=== PATIENT | male | born 1960 | race Caucasian/White ===

== ENCOUNTER → 2016-08-28 | Outpatient (CLI) | payer OTHER ==
[~2016-08-28] MED LIST: LISI20TA3 PO; MULT1CAP16 PO; SIMV80TA2 PO; WARF10TA PO
[2016-08-28 12:28] LABS: URINE APPEARANCE CLEAR (CLEAR); URINE BILIRUBIN NEG (NEG); URINE COLOR YELLOW; URINE NITRITE NEG (NEG); URINE SPECIFIC GRAVITY 1.019 (1.000-1.030); UROBILINOGEN NEG (NEG)
[2016-08-28 12:35] LABS: BASO % 0.9 %; BASO ABS # 0.05 K/uL (0-0.2); COMPLETE YES; EOS % 3.9 %; HEMATOCRIT 46.8 % (42-52); IG% 0.9 %; LYMPH % 25.6 %; LYMPH ABS # 1.45 K/uL (1.2-3.4); MEAN CELL VOLUME 86.8 fL (80-100); MEAN CORPUSCULAR HEMOGLOBIN 29.7 pg (25-34); MEAN CORPUSCULAR HGB CONC 34.2 g/dl (32-36); MEAN PLATELET VOLUME 10.7 fL (7.4-10.4); MONO % 8.5 %; NEUT % 60.2 %; PLATELET COUNT 197 K/uL (130-400); RED BLOOD COUNT 5.39 M/uL (4.7-6.1); WHITE BLOOD COUNT 5.66 K/uL (4.8-10.8)
[2016-08-28 12:46] LABS: ALT/SGPT 41 U/L (12-78); AST/SGOT 20 U/L (15-37); BLOOD UREA NITROGEN 12 mg/dl (7-18); BUN/CREATININE RATIO 12.1 (10-20); CARBON DIOXIDE 25 mmol/L (21-32); CHLORIDE 107 mmol/L (98-107); CREATININE 0.98 mg/dl (0.60-1.40); GLUCOSE 118 mg/dl (70-99); POTASSIUM 4.3 mmol/L (3.5-5.1); SODIUM 142 mmol/L (136-145)
[2016-08-28 12:51] LABS: ALB/GLOB RATIO 1.3 (0.9-2); ALKALINE PHOSPHATASE 55 U/L (45-117); CHOLESTEROL 133 mg/dl (0-200); CHOLESTEROL/HDL RATIO 2.4; HDL CHOLESTEROL 56 mg/dl; LDL CHOLESTEROL CALCULATED 54 mg/dl; PROSTATE SPECIFIC ANTIGEN 0.673 ng/ml (0.000-4.000); TRIGLYCERIDES 113 mg/dl (0-150); VERY LOW DENSITY LIPOPROT CALC 23 mg/dl
[2016-08-28 12:52] LABS: MANUAL MICROSCOPIC REQUIRED? NO; REVIEW REQ? NO
[2016-08-28 12:53] LABS: ESTIMATED AVERAGE GLUCOSE 120 mg/dl; HA1C FLAG Normal (Normal)
--- NOTE | 2016-08-29 08:33 | CODING QUERY NO DIAGNOSIS ---
: 1960 TREATMENT RENDERED WITHOUT A DIAGNOSIS To promote full compliance with coding requirements relating to patient care, physician participation is requested in all cases of designer/writer uncertainty. Please assist us with providing a diagnosis/symptom for the test(s) below: A diagnosis/symptom was not documented on your Order. A valid diagnosis/symptom is required to bill all insurances. Please remember that we are unable to code a diagnosis of rule out, probable, possible, questionable, or suspected. Tests that require a diagnosis: DOS: 08/28/16 * Comprehensive Metabolic Panel DIAGNOSIS: * Lipid Profile, Fasting DIAGNOSIS: * Prostate Specific Antigen DIAGNOSIS: * CBC with Auto Differential DIAGNOSIS: * Hemoglobin A1C DIAGNOSIS: * UA Clean Catch DIAGNOSIS: Provider Signature: Date: Thank you Cassandra Patel Health Information Management Once completed, please kindly fax back to [phone] For questions please call [phone]
== END | disposition home or self-care (01) ==
LOC: C.LABBFT 09:29
PROVIDERS: ATTEND Internal Medicine
DX: E78.5 Hyperlipidemia, unspecified (principal); Z12.5 Encounter for screening for malignant neoplasm of prostate; I10 Essential (primary) hypertension; R73.09 Other abnormal glucose; D68.51 Activated protein C resistance

== ENCOUNTER → 2017-09-19 | Outpatient (CLI) | payer OTHER ==
[2017-09-19 12:41] LABS: BASO % 0.4 %; BASO ABS # 0.02 K/uL (0-0.2); EOS % 2.4 %; EOS ABS # 0.13 K/uL (0-0.5); HEMATOCRIT 49.4 % (42-52); HEMOGLOBIN 16.7 g/dL (14.0-18.0); IG# 0.01 K/uL (0.00-0.02); LYMPH % 28.5 %; LYMPH ABS # 1.55 K/uL (1.2-3.4); MEAN CELL VOLUME 87.3 fL (80-100); MEAN CORPUSCULAR HEMOGLOBIN 29.5 pg (25-34); MEAN CORPUSCULAR HGB CONC 33.8 g/dl (32-36); MONO % 8.1 %; MONO ABS # 0.44 K/uL (0.11-0.59); NEUT % 60.4 %; NEUT ABS # 3.28 K/uL (1.4-6.5); PLATELET COUNT 191 K/uL (130-400); RED CELL DISTRIBUTION WIDTH CV 13.8 % (11.5-14.5); RED CELL DISTRIBUTION WIDTH SD 44.1 fL (36.4-46.3); WHITE BLOOD COUNT 5.43 K/uL (4.8-10.8)
[2017-09-19 13:05] LABS: HEMOGLOBIN A1C 5.5 % (4.5-5.6)
[2017-09-19 13:14] LABS: ALKALINE PHOSPHATASE 62 U/L (45-117); ALT/SGPT 31 U/L (12-78); AST/SGOT 17 U/L (15-37); BLOOD UREA NITROGEN 19 mg/dl (7-18); CALCIUM 8.7 mg/dl (8.5-10.1); CARBON DIOXIDE 28 mmol/L (21-32); CHOLESTEROL 106 mg/dl (0-200); CREATININE 0.98 mg/dl (0.60-1.40); GLUCOSE 102 mg/dl (70-99); LDL CHOLESTEROL CALCULATED 51 mg/dl; POTASSIUM 4.3 mmol/L (3.5-5.1); SODIUM 141 mmol/L (136-145); TOTAL PROTEIN 7.1 gm/dl (6.4-8.2)
== END | disposition home or self-care (01) ==
LOC: C.LABPVFM 09:41
PROVIDERS: ATTEND Internal Medicine
DX: E78.5 Hyperlipidemia, unspecified (principal); R73.03 Prediabetes; N52.9 Male erectile dysfunction, unspecified

== ENCOUNTER 2020-10-06 23:38 | Inpatient (IN) ==
[2020-10-07] MEDS: SODIUM CHLORIDE 0.9% 1000ML 1,000 ML IV SCH ×2 (00:20→01:52)
[2020-10-07 00:28] LABS: Base Excess VBG -6.3 mEq/L; HCO3 VBG 21 mmol/L; Oxygen Saturation VBG < 60.0 %; PCO2 VBG 47 mmHg (38-50); PO2 VBG 26 mmHg; pH VBG 7.27 (7.36-7.41)
[2020-10-07 00:43] LABS: INR 3.4 (0.9-1.1); Partial Thromboplastin Ratio 1.3; Partial Thromboplastin Time 32.9 Seconds (21.0-31.0); Prothrombin Time 31.1 Seconds (9.0-12.0)
[2020-10-07 00:46] LABS: Eosinophils # (auto) 0.09 K/uL (0-0.5); Eosinophils % (auto) 1.1 %; Hematocrit (blood only) 53.8 % (42-52); Hemoglobin 16.9 g/dL (14.0-18.0); Immature Granulocytes # (auto) 0.01 K/uL (0.00-0.02); Immature Granulocytes % (auto) 0.1 %; Lymphocytes # (auto) 1.16 K/uL (1.2-3.4); Lymphocytes % (auto) 13.6 %; Mean Corpuscular Hemoglobin 27.8 pg (25-34); Mean Corpuscular Hgb Conc 31.4 g/dL (32-36); Mean Corpuscular Volume 88.3 fL (80-100); Monocytes # (auto) 0.67 K/uL (0.11-0.59); Monocytes % (auto) 7.8 %; Neutrophils # (auto) 6.63 K/uL (1.4-6.5); Neutrophils % (auto) 77.4 %; Platelet Count 192 K/uL (130-400); Red Blood Count 6.09 M/uL (4.7-6.1); White Blood Count 8.56 K/uL (4.8-10.8)
[2020-10-07 00:59] LABS: Alanine Aminotransferase 49 U/L (12-78); Albumin Level 3.4 gm/dl (3.4-5.0); Alkaline Phosphatase 98 U/L (45-117); BUN Creatinine Ratio 21.9 (10-20); Bilirubin,Total 0.5 mg/dl (0.2-1); Blood Urea Nitrogen 76 mg/dl (7-18); Calcium 8.8 mg/dl (8.5-10.1); Carbon Dioxide 22 mmol/L (21-32); Chloride 97 mmol/L (98-107); Creatinine Clr Calc Pharmacy 25.6 ml/min; Est GFR (African American) 20.8; Globulin 3.4 gm/dl (2.5-4.0); Glucose 1205 mg/dl (70-99); Lipase 843 U/L (73-393); Sodium 128 mmol/L (136-145); Total Protein 6.8 gm/dl (6.4-8.2); Troponin I < 0.015 ng/ml (0-0.045)
[2020-10-07] MEDS ORDERED: HHS GOAL RANGE 250-350 mg/dl ONE (01:03)
[2020-10-07] MEDS ORDERED: INSULIN REGULAR 250 UNITS in SODIUM CHLORIDE 0.9% 247.5 ML IV SCH (01:15)
--- NOTE | 2020-10-07 01:25 | History & Physical Report ---
Date of Service October 07, 2020 Assessment & Plan (1) Type 2 diabetes mellitus with hyperosmolar hyperglycemic state (HHS): 60 yo M with hx uncontrolled T2DM, obesity, HLD, HTN, Factor V leiden heterozygote w/ hx DVT admitted for weakness secondary to HHS. HHS with elevated B-OH level/DKA - BSG 1205 on admission, A1c two weeks ago 10.3 - B-OH 15, Anion gap 9 on BMP, however with corrected sodium is gap is 27 - ABG showing anion gap metabolic acidosis consistent with DKA (7.34/32/79/16) - ER course: 7 units regular insulin, regular insulin drip initiated, 3L NS - adjusted plan on PCU floor: 10u regular insulin followed by repeat BSG 30 min later. Repeat 10u Regular insulin IV if BSG >450. titrate to goal of BSG ~300. - hydration with 1/2NS + 20 mEq K, 250 ml/hr - Q4 BMP, Phos DM2 - after BSG <400, can do ACHS BSG measurements with SSI coverage to fully close gap and return BSG to normal range - diabetic, heart healthy diet - outpatient regimen recently started was metformin 1000 BID. will likely need to go home on insulin, will calculate based on daily requirements - diabetic education crucial Hyponatremia - secondary to elevated BSG as above ANGELA - Cr 3.47 secondary to dehydration with HHS - improving with fluids - only value in early 2020 was 1.51, may be new baseline Hx DVT/Factor V Leiden Heterozygote - continue warfarin MWF 7.5, else 5mg - INR, PT, PTT check in AM HTN - cont lisinopril HLD - cont statin Elevated Lipase - secondary to hyperglycemia above - 843 -> 672 with hydration - no abdominal pain, low suspicion for acute pancreatitis. likely chronic elevation with uncontrolled T2DM DVT ppx: warfarin FEN/GI: NPO with sips & chips until BSG stabilizes Code Status: Full code Dispo: PCU (2) Elevated beta-hydroxybutyric acid level: (3) Uncontrolled diabetes mellitus: (4) Factor 5 Leiden mutation, heterozygous: (5) History of DVT (deep vein thrombosis): (6) Hypertension: (7) Hyperlipidemia: History of Present Illness 60-year-old male with history of uncontrolled type 2 diabetes, factor V Leiden mutation, history of DVT, obesity who presents to the emergency department for generalized weakness. Patient is a very poor understanding of his diabetes and discusses how he has 5 large glasses of chocolate milk a day as well as soda pop the past few days "because it is good for you ". He denies ever being told that he had diabetes before because he is always been prediabetic. He does recall going to see Dr. Coyle for his PCP visit as well as endocrinology visit sometime later but does not have a strong recollection of topics discussed either appointment. In the patient room he is visibly quivering and shaking and says that this started when he arrived at the emergency department. He also states that his eyesight has been worsening for the past several months to a year. He states he is unable to read things far in the wall but can see things that are closer. He denies constant feeling of blurry vision. Primary Care Provider: Brayan Coyle MD Allergies Allergy/AdvReac Type Severity Reaction Status Date / Time No Known Drug Allergies Allergy Unknown Verified 10/07/20 02:02 Home Medications Medication Instructions Recorded Confirmed Type lisinopril 20 mg tablet 20 mg PO DAILY #90 tab 07/25/20 10/07/20 Rx simvastatin 80 mg tablet 80 mg PO QPM #90 tab 07/31/20 10/07/20 Rx blood sugar diagnostic #100 ea 09/28/20 10/07/20 Rx blood-glucose meter #1 ea 09/28/20 10/07/20 Rx lancets #100 ea 09/28/20 10/07/20 Rx metformin 500 mg tablet,extended 2,000 mg PO DAILY 30 Days #120 tab 09/28/20 10/07/20 Rx release 24 hr warfarin 5 - 7.5 mg PO .DAILY UD 10/07/20 10/07/20 History Past Med/Surg History Medical History Diabetes type 2, controlled Erectile dysfunction Factor 5 Leiden mutation, heterozygous History of DVT (deep vein thrombosis) Hyperlipidemia Hypertension Localized primary osteoarthritis of lower leg S/P ORIF (open reduction internal fixation) fracture Status post ORIF for right forearm fracture-remote Family History Mother Cancer Father Unknown family medical history Denies family history of Prostate cancer Colorectal cancer Social History (Updated 09/26/20 @ 13:20 by Luke Coyle MD) Smoking Status: Never smoker Do You Dip or Chew Tobacco: Yes; Hx Alcohol Use: Yes Alcohol type: beer Alcohol Intake Frequency Comment: About 6 beers on Tuesdays. Hx Substance Use: No Preferred Language: Dominican Communication Ability: Effective Beliefs That Will Affect Care: None marital status: Current Living Situation: Family Current Living Situation Comment: Son in law lives "downstairs" current occupational status: disabled Other Information That Helps Us Care for You: No Feels Safe at Home: Yes Safety Concerns: Feels Safe At This Time Assistive Devices: None Review of Systems Constitutional: + fatigue, + weakness and + weight gain Respiratory: no cough, no dyspnea and no pain on inspiration Cardiovascular: + lightheadedness; no chest pain, no radiating jaw, neck or arm pain, no dyspnea on exertion, no palpitations and no calf pain Gastrointestinal: no abdominal pain, no nausea, no vomiting, no constipation and no diarrhea/loose stools Neurologic: + unsteadiness, + tingling, + lack of coordination and + tremor(s) Endocrine: + fatigue Physical Exam Physical Exam: Constitutional: obese, in no apparent distress, visibly tremoring in all 4 limbs at rest Eyes: EOMI, pupils equal and reactive bilaterally, no scleral icterus Cardiac: RRR, no murmurs, gallops or rubs. Normal S1, S2 Pulm: CTA BL, no wheezes, rhonchi, crackles or rubs, moving air well throughout both lungs Abd: soft, nontender, nondistended, normal bowel sounds, no rebound or guarding Extremities: 2+ peripheral pulses, no edema skin: tight and heavily sun exposed. venous stasis change along bottom of shins Neuro: no focal deficits, moving all 4 limbs, A&Ox3 Results & Data Results & Data ([facility]) Vital Signs (Past 12 Hours) Vital Signs Temp Pulse Resp BP Pulse Ox 10/07/20 00:05 92 H 16 94 10/06/20 23:48 36.8 C 104 H 22 111/64 98 Laboratory Results WBC 8.56 K/uL (4.8-10.8) 10/07/20 00:09 RBC 6.09 M/uL (4.7-6.1) 10/07/20 00:09 Hgb 16.9 g/dL (14.0-18.0) 10/07/20 00:09 Hct 53.8 % (42-52) H 10/07/20 00:09 MCV 88.3 fL (80-100) 10/07/20 00:09 MCH 27.8 pg (25-34) 10/07/20 00:09 MCHC 31.4 g/dL (32-36) L 10/07/20 00:09 Plt Count 192 K/uL (130-400) 10/07/20 00:09 Immature Gran % (Auto) 0.1 % 10/07/20 00:09 Neut % (Auto) 77.4 % 10/07/20 00:09 Lymph % (Auto) 13.6 % 10/07/20 00:09 [place] % (Auto) 7.8 % 10/07/20 00:09 Eos % (Auto) 1.1 % 10/07/20 00:09 Baso % (Auto) 0.0 % 10/07/20 00:09 Neut # (Auto) 6.63 K/uL (1.4-6.5) H 10/07/20 00:09 Lymph # (Auto) 1.16 K/uL (1.2-3.4) L 10/07/20 00:09 [place] # (Auto) 0.67 K/uL (0.11-0.59) H 10/07/20 00:09 Eos # (Auto) 0.09 K/uL (0-0.5) 10/07/20 00:09 Baso # (Auto) 0.00 K/uL (0-0.2) 10/07/20 00:09 Immature Gran # (Auto) 0.01 K/uL (0.00-0.02) 10/07/20 00:09 PT 31.1 Seconds (9.0-12.0) H 10/07/20 00:09 INR 3.4 (0.9-1.1) H 10/07/20 00:09 APTT 32.9 Seconds (21.0-31.0) H 10/07/20 00:09 PTT Ratio 1.3 10/07/20 00:09 ABG pH 7.34 (7.35-7.45) L 10/07/20 02:37 ABG pCO2 32 mmHg (35-46) L 10/07/20 02:37 ABG pO2 79 mmHg (80-95) L 10/07/20 02:37 ABG HCO3 16 mmol/L (19-24) L 10/07/20 02:37 ABG O2 Saturation 95.7 % (90-95) H 10/07/20 02:37 ABG Base Excess -8.0 mEq/L (-9-1.8) 10/07/20 02:37 Josep Test POS (Pos) 10/07/20 02:37 VBG pH 7.27 (7.36-7.41) L 10/07/20 00:09 VBG pCO2 47 mmHg (38-50) 10/07/20 00:09 VBG pO2 26 mmHg 10/07/20 00:09 VBG HCO3 21 mmol/L 10/07/20 00:09 VBG O2 Saturation < 60.0 % 10/07/20 00:09 VBG Base Excess -6.3 mEq/L 10/07/20 00:09 Barometric Pressure 727.1 mm/Hg 10/07/20 02:37 Oxygen Given ROOM AIR 10/07/20 02:37 Sodium 128 mmol/L (136-145) L 10/07/20 00:09 Potassium 6.5 mmol/L (3.5-5.1) H* 10/07/20 01:18 Chloride 97 mmol/L (98-107) L 10/07/20 00:09 Carbon Dioxide 22 mmol/L (21-32) 10/07/20 00:09 Anion Gap 9.0 (3-11) 10/07/20 00:09 BUN 76 mg/dl (7-18) H 10/07/20 00:09 Creatinine 3.47 mg/dl (0.6-1.4) H 10/07/20 00:09 Est Cr Clr Drug Dosing 25.6 ml/min 10/07/20 00:09 Est GFR ( Amer) 20.8 10/07/20 00:09 Est GFR (Non-Af Amer) 18.0 10/07/20 00:09 BUN/Creatinine Ratio 21.9 (10-20) H 10/07/20 00:09 Glucose 858 mg/dl (70-99) H* 10/07/20 03:14 POC Glucose > 600 mg/dl (70-99) H* 10/07/20 04:56 Calcium 8.8 mg/dl (8.5-10.1) 10/07/20 00:09 Phosphorus 6.3 mg/dl (2.5-4.9) H 10/07/20 01:18 Magnesium 3.2 mg/dl (1.8-2.4) H 10/07/20 01:18 Total Bilirubin 0.5 mg/dl (0.2-1) 10/07/20 00:09 AST 24 U/L (15-37) 10/07/20 01:18 ALT 49 U/L (12-78) 10/07/20 00:09 Alkaline Phosphatase 98 U/L (45-117) 10/07/20 00:09 Troponin I < 0.015 ng/ml (0-0.045) 10/07/20 00:09 Total Protein 6.8 gm/dl (6.4-8.2) 10/07/20 00:09 Albumin 3.4 gm/dl (3.4-5.0) 10/07/20 00:09 Globulin 3.4 gm/dl (2.5-4.0) 10/07/20 00:09 Albumin/Globulin Ratio 1.0 (0.9-2) 10/07/20 00:09 Lipase 843 U/L (73-393) H 10/07/20 00:09 Beta-Hydroxybutyric Acd 13.61 mg/dl (0.2-2.81) H 10/07/20 03:14 TSH 2.720 uIu/ml (0.300-4.500) 10/07/20 00:09 Urine Color Yellow 10/07/20 01:57 Urine Appearance Clear (Clear) 10/07/20 01:57 Urine pH 5.0 (4.5-7.5) 10/07/20 01:57 Ur Specific Dixon 1.033 (1.000-1.030) H 10/07/20 01:57 Urine Protein Negative (Negative) 10/07/20 01:57 Urine Glucose (UA) 3+ (Negative) H 10/07/20 01:57 Urine Ketones Negative (Negative) 10/07/20 01:57 Urine Blood 2+ (Negative) H 10/07/20 01:57 Urine Nitrite Negative (Negative) 10/07/20 01:57 Urine Bilirubin Negative (Negative) 10/07/20 01:57 Urine Urobilinogen Negative (Negative) 10/07/20 01:57 Ur Leukocyte Esterase Negative (Negative) 10/07/20 01:57 Urine WBC (Auto) 1-5 /hpf (0-5) 10/07/20 01:57 Urine RBC (Auto) 0-4 /hpf (0-4) 10/07/20 01:57 U Hyaline Cast (Auto) 1-5 /lpf (0-5) 10/07/20 01:57 U Epithel Cells (Auto) 0-5 /lpf (0-5) 10/07/20 01:57 Urine Bacteria (Auto) Negative (Negative) 10/07/20 01:57 COVID-19 Eval Order CovFluRsv at [facility] 10/07/20 00:16 SARS-CoV-2 (PCR) NEGATIVE (Negative) 10/07/20 00:16 Influenza Type A (PCR) Negative (Neg) 10/07/20 00:16 Influenza Type B (PCR) Negative (Neg) 10/07/20 00:16 RSV (RT-PCR) Negative (Neg) 10/07/20 00:16 Supervising Physician Co-Signing Physician Notes Attending addendum: I have physically seen this patient, have supervised the medical residents activities, and agree with the H&P unless as otherwise noted. Assessment and Plan: Diabetes mellitus type 2 uncontrolled/mild DKA- BSG 1205 upon admission, with pH 7.34 Plan to give serial regular insulin IV pushes as noted. Every 4 hour intervals will check BMP, magnesium and phosphorus levels IV fluids: Half-normal saline plus KCl 20 mEq at 150 mils per hour. Follow anion gap, and if necessary add D5 when glucose goes to be less than 250 Patient will need extensive education regarding appropriate diet Pseudohyponatremia/ANGELA on CKD- IV fluids as noted above Creatinine 3.47, with most recent base 1.51 Follow serial BMP and magnesium levels at 4-hour intervals. DVT/factor V Leiden- Continue warfarin at current doses after recheck in a.m. Mild supratherapeutic INR 3.4 Hypertension- Continue lisinopril with hold parameters Hyperlipidemia- Continue simvastatin Remaining orders and notations as noted Resident Activity Tracking Resident Involvement: Resident Care Provided Care Provided: Adult Hospital Medicine
[2020-10-07] MEDS ORDERED: GLUCAGON FOR INJ 1 MG VIAL IM PRN (01:45)
[2020-10-07] MEDS ORDERED: DEXTROSE 50% 50 ML SYRINGE IV PRN (01:45)
[2020-10-07] MEDS ORDERED: CARBOHYDRATES FOR HYPOGLYCEMIA PO PRN (01:45)
[2020-10-07] MEDS ORDERED: GLUCOSE 10 TABS/TUBE PO PRN (01:45)
[2020-10-07] MEDS ORDERED: GLUCOSE 40% GEL 15 GM TUBE PO PRN (01:45)
[2020-10-07] MEDS ORDERED: NovoLIN-R BOLUS FROM BAG IV ONE (01:45)
[2020-10-07 02:04] LABS: Beta-Hydroxybutyrate 15.59 mg/dl (0.2-2.81); Magnesium 3.2 mg/dl (1.8-2.4)
[2020-10-07 02:11] LABS: Potassium 6.5 mmol/L (3.5-5.1)
[2020-10-07 02:27] LABS: Influenza A virus by PCR Negative (Neg); Influenza B virus by PCR Negative (Neg); RSV by PCR Negative (Neg); SARS CoV2 RNA(COVID-19) InHosp NEGATIVE (Negative)
[2020-10-07 02:54] LABS: Phosphorus 6.3 mg/dl (2.5-4.9)
[2020-10-07 03:05] LABS: HCO3 ABG 16 mmol/L (19-24); Oxygen Saturation ABG 95.7 % (90-95); PCO2 ABG 32 mmHg (35-46); PO2 ABG 79 mmHg (80-95); pH ABG 7.34 (7.35-7.45)
[2020-10-07 03:08] LABS: Allen Test POS (Pos)
[2020-10-07 03:25] LABS: Beta-Hydroxybutyrate 15.42 mg/dl (0.2-2.81)
[2020-10-07 03:48] LABS: Appearance Urine Clear (Clear); Bacteria Urine Automated Negative (Negative); Bilirubin Urine Negative (Negative); Blood Urine 2+ (Negative); Color Urine Yellow; Epithelial Cell Urine Auto 0-5 /lpf (0-5); Glucose Urine UA 3+ (Negative); Ketones Urine Negative (Negative); Leukocyte Esterase Urine Negative (Negative); Nitrite Urine Negative (Negative); Protein Urine Negative (Negative); RBC Urine Automated 0-4 /hpf (0-4); Specific Gravity Urine 1.033 (1.000-1.030); Urobilinogen Urine Negative (Negative)
[2020-10-07] MEDS ORDERED: PENDING 1/2NSS+40mEq KCL IVF SCH (04:20)
[2020-10-07] MEDS ORDERED: NITROGLYCERIN SL 0.4 MG/TAB TAB SL PRN (04:20)
[2020-10-07] MEDS ORDERED: POLYETHYLENE (MIRALAX) 17 GM PACK PO PRN (04:20)
[2020-10-07] MEDS ORDERED: NovoLIN-R INSULIN PER UNIT CHARGE IV STA (04:20)
[2020-10-07] MEDS ORDERED: ACETAMINOPHEN 325 MG TAB PO PRN (04:20)
[2020-10-07] MEDS ORDERED: ONDANSETRON INJ 2 MG/ML 2 ML VIAL IV PRN (04:20)
[2020-10-07 04:27] LABS: Beta-Hydroxybutyrate 13.61 mg/dl (0.2-2.81)
[2020-10-07] MEDS ORDERED: POTASSIUM CHLORIDE IV SCH (04:30)
[2020-10-07] MEDS ORDERED: SODIUM CHLOR IV SCH (04:30)
[2020-10-07] MEDS ORDERED: KCL IV SCH (04:30)
[2020-10-07] MEDS ORDERED: INSULIN HUMAN REGULAR PER UNIT 10 UNITS in SYRINGE 9.9 ML IV ONE (04:30)
[2020-10-07 05:26] LABS: INR 3.3 (0.9-1.1); Partial Thromboplastin Ratio 1.3; Partial Thromboplastin Time 33.6 Seconds (21.0-31.0); Prothrombin Time 30.3 Seconds (9.0-12.0)
[2020-10-07 05:28] LABS: BUN Creatinine Ratio 23.9 (10-20); Calcium 8.8 mg/dl (8.5-10.1); Est GFR (Non-African American) 21.6; Phosphorus 4.7 mg/dl (2.5-4.9); Potassium 4.7 mmol/L (3.5-5.1)
[2020-10-07 05:44] LABS: Beta-Hydroxybutyrate 4.21 mg/dl (0.2-2.81)
[2020-10-07] MEDS: SODIUM CHLOR 0.45% + 20MEQ KCL 20 MEQ/1,000 ML BAG IV SCH ×5 (06:06→21:48)
[2020-10-07 06:31] LABS: BUN Creatinine Ratio 22.2 (10-20); Calcium 9.5 mg/dl (8.5-10.1); Creatinine Clr Calc Pharmacy 31.2 ml/min; Est GFR (African American) 23.4; Est GFR (Non-African American) 20.2; Phosphorus 4.6 mg/dl (2.5-4.9); Potassium 4.6 mmol/L (3.5-5.1)
[2020-10-07 07:10] LABS: Beta-Hydroxybutyrate 2.24 mg/dl (0.2-2.81)
[2020-10-07] MEDS: ATORVASTATIN 40 MG TAB PO SCH (07:24)
[2020-10-07] MEDS: lisinopril 20 MG TAB PO SCH (07:24)
[2020-10-07] MEDS ORDERED: INSULIN ASPART 100 UNITS/ML 3 ML PEN SC SCH (07:30)
[2020-10-07] MEDS: INSULIN ASPART 100 UNITS/ML 3 ML PEN SC SCH ×4 (08:02→21:49)
[2020-10-07 12:43] LABS: BUN Creatinine Ratio 22.2 (10-20); Calcium 8.8 mg/dl (8.5-10.1); Creatinine Clr Calc Pharmacy 29.3 ml/min; Est GFR (African American) 21.7; Est GFR (Non-African American) 18.7; Potassium 4.7 mmol/L (3.5-5.1)
[2020-10-07 13:59] LABS: Phosphorus 5.6 mg/dl (2.5-4.9)
[2020-10-07] MEDS ORDERED: WARFARIN SOD 7.5 MG TAB PO SCH (16:00)
--- NOTE | 2020-10-07 18:41 | Electrocardiogram Report ---
Test Reason : Blood Pressure : / mmHG Vent. Rate : 092 BPM Atrial Rate : 092 BPM P-R Int : 182 ms QRS Dur : 102 ms QT Int : 368 ms P-R-T Axes : 070 268 036 degrees QTc Int : 455 ms Normal sinus rhythm Right superior axis deviation possible Inferior infarct , age undetermined Poor R wave progression, consider anterior MT vs. lead placement vs. LVH Abnormal ECG When compared with ECG of 29-NOV-2002 16:52, Minimal criteria for Anterior infarct are now Present Inferior infarct is now Present Confirmed by Brayan Brown ([id number]) on 10/07/2020 6:40:50 PM Referred By: REFERRED SELF Confirmed By:Arun Brown
--- NOTE | 2020-10-07 19:04 | Communication Note ---
Date of Service: October 07, [address] pt [address] archibald and myself. improving. educated extensively on desperate need for lifesytle chnage. on second visit started to seem to underst and some HHS/ARF - continue fluids, sugar mangaement, lifestyle change
[2020-10-07] MEDS ORDERED: PHARMACY GLYCEMIC MGMT CONSULT PRN (21:31)
[2020-10-07] MEDS ORDERED: INSULIN GLARGINE SOLOSTAR 100 UNITS/ML 3 ML PEN SC SCH (22:00)
[2020-10-08] MEDS ORDERED: INSULIN HUMAN REGULAR PER UNIT 5 UNITS in SYRINGE 4.95 ML IV ONE (00:15)
[2020-10-08] MEDS: INSULIN ASPART 100 UNITS/ML 3 ML PEN SC SCH ×6 (00:29→21:06)
[2020-10-08] MEDS: SODIUM CHLOR 0.45% + 20MEQ KCL 20 MEQ/1,000 ML BAG IV SCH ×2 (06:29→14:21)
[2020-10-08 07:01] LABS: Basophils # (auto) 0.04 K/uL (0-0.2); Basophils % (auto) 0.7 %; Eosinophils # (auto) 0.23 K/uL (0-0.5); Eosinophils % (auto) 4.2 %; Hematocrit (blood only) 44.9 % (42-52); Hemoglobin 14.9 g/dL (14.0-18.0); Immature Granulocytes # (auto) 0.01 K/uL (0.00-0.02); Immature Granulocytes % (auto) 0.2 %; Lymphocytes # (auto) 1.63 K/uL (1.2-3.4); Lymphocytes % (auto) 29.5 %; Mean Corpuscular Hemoglobin 28.3 pg (25-34); Mean Corpuscular Hgb Conc 33.2 g/dL (32-36); Mean Corpuscular Volume 85.2 fL (80-100); Mean Platelet Volume 10.7 fL (7.4-10.4); Monocytes % (auto) 7.2 %; Neutrophils # (auto) 3.21 K/uL (1.4-6.5); Neutrophils % (auto) 58.2 %; Platelet Count 136 K/uL (130-400); RDW Coefficient of Variation 14.6 % (11.5-14.5); RDW Standard Deviation 45.5 fL (36.4-46.3); Red Blood Count 5.27 M/uL (4.7-6.1); White Blood Count 5.52 K/uL (4.8-10.8)
[2020-10-08 07:13] LABS: INR 2.1 (0.9-1.1); Prothrombin Time 19.8 Seconds (9.0-12.0)
--- NOTE | 2020-10-08 07:14 | Hospitalist Progress Note ---
Date of Service October 08, 2020 Assessment & Plan (1) Type 2 diabetes mellitus with hyperosmolar hyperglycemic state (HHS): 60 yo M with hx uncontrolled T2DM, obesity, HLD, HTN, Factor V leiden heterozygote w/ hx DVT admitted for weakness secondary to HHS. HHS with Features of Concurrent DKA - BSG 1205, BHB elevated at 15, cAG 27, and ABG supportive of concurrent DKA on admission - A1c at 10.3 in 08/2020 - Now stabilized after drip -- regular BSGs at goal - Continue Lantus 40U qHS w/ SSI while here - Continue with 1/2NS + 20 mEq K, 250 ml/hr -- still likely >1L FWD at present - BMP, Phos qAM, replete prn DM2 - Lantus, SSI while here as above - Extensive education provided while here about pathophys of DM2, need for large lifestyle modifications - Upon discharge, will require glycemic control- - Continue metformin 1000 b.i.d. w/ B12 supplementation - Consider addition of basal insulin (Lantus 30-40) VS. GLP1 or both, +prandial - In getting to know patient, do have some concern about ability to manage insulin / adjust prandially -- p.o. medicines may be a better initial option alongside aggressive diet mods - urine microalbumin/cr at 17 on 06/12/20 -- continue yearly checks, ACEI - as outpt will need: ophtho, outreach educator, dme- glucometer, yearly urine tests, close pcp f/u, etc. - extensive discussion held AM of 10/08 re: pathophys, goals, roles of diabetes management including lifestyle, meds - diabetic, heart healthy diet ANGELA - Cr much improved on today's labs-- 3.4 --> 1.8 - Most likely prerenal from extensive osmotic diuresis in setting of HHS - Continue NSS+Kcl - only value in early 2020 was 1.51, may be new baseline? Hx DVT/Factor V Leiden Heterozygote - continue warfarin MWF 7.5, other days 5mg - INR goal 2-3 -- at goal - INR, PT, PTT check in AM HTN - cont lisinopril for htn/kidney protection HLD - cont statin Elevated Lipase - secondary to hyperglycemia above - 843 -> 672 with hydration - no abdominal pain, low suspicion for acute pancreatitis. likely chronic elevation with uncontrolled T2DM Dispo: pcu --> m/s DVT ppx: warfarin FEN/GI: CC diet w/ SSI, CC Code Status: Full code (2) Elevated beta-hydroxybutyric acid level: (3) Uncontrolled diabetes mellitus: (4) Factor 5 Leiden mutation, heterozygous: (5) History of DVT (deep vein thrombosis): (6) Hypertension: (7) Hyperlipidemia: Admission and Anticipated Discharge Date Admission Date: October 07, 2020 Supervising Physician Co-Signing Physician Notes I personally examined the patient and verified all santos points of history and exam, discussed case, and agree with decision making with Dr Esqueda. Feeling better, feeling more like himself. Still has not gotten up and around much, vision a little bit blurry but mostly at distance, better if close-up. Reiterates understanding that soda and chocolate milk are not commesurate with good sugar control. In general he is awake and alert pleasant no distress. HEENT normocephalic atraumatic mucous membranes moist. Breathing unlabored no accessory muscle use good effort. Skin shows no rashes no pallor or icterus. Vision grossly intact, blurry whenever I ask him to look at things at the foot of the bed, much more clear whenever I bring it within a few feet of his face, EOMI, pupils reactive. Good peripheral vision. No focal neuro deficits. Uncontrolled type 2 diabetes with hyperglycemic dehydration/HHS/acute renal failureall improving with IV fluids and insulin management. Ongoing education. Likely would improve dramatically with lifestyle change. Stable for medical, continue fluids, home once his ANGELA/ARF has resolved or is getting closer to baseline. Anticoagulated on Coumadin for prior DVT. Otherwise as above Subjective NAEO. Feels thirsty and groggy. No lightheadedness/dizziness. Good appetite. Vision still not great - no changes. Denies shortness of breath. No CP/palpitations. Eager to leave. Understanding that lifestyle changes have to be made - discussed in detail, as well as role of insulin in the body Review of Systems Review of Systems: as per HPI Physical Exam Physical Exam: General: tired-appearing 60yoM who is lying back in his hospital bed sleeping upon my arrival, NAD HEENT: Mucous membranes on the drier take off tender side. Poor dentition. Neck: Jugular venous pulse approx. 1.5cm above the clavicle at 30deg - hepatoju gular reflex positive Cardiac: NRRR. S1/S2 without m/r/g Pulmonary: Good respiratory effort w/ symmetric expansion fo the chest. Lungs CTAB w/o crackles or wheezes Extremities: 1+ pitting edema in the lower extremities b/l Results & Data Results & Data ([facility]) Vital Signs (Past 12 Hours) Vital Signs Temp Pulse Resp BP Pulse Ox 10/08/20 03:56 36.8 C 80 18 110/68 95 10/08/20 00:10 36.6 C 75 16 132/79 94 Resident Activity Tracking Resident Involvement: Resident Care Provided Care Provided: Adult Hospital Medicine
[2020-10-08 07:35] LABS: BUN Creatinine Ratio 29.9 (10-20); Calcium 8.4 mg/dl (8.5-10.1); Creatinine Clr Calc Pharmacy 54.9 ml/min; Est GFR (African American) 45.7; Est GFR (Non-African American) 39.5; Phosphorus 2.8 mg/dl (2.5-4.9); Potassium 4.6 mmol/L (3.5-5.1)
[2020-10-08] MEDS: lisinopril 20 MG TAB PO SCH (08:15)
[2020-10-08] MEDS: ATORVASTATIN 40 MG TAB PO SCH (08:15)
[2020-10-08] MEDS ORDERED: INSULIN GLARGINE SOLOSTAR 100 UNITS/ML 3 ML PEN SC ONE ×2 (08:30)
--- NOTE | 2020-10-08 10:51 | Pharmacy Report ---
Pharmacy Glycemic Short Note 2 - Date of Service October 08, 2020 - Glycemic Short BSG Results (Last 24 hours): 10/07/20 10/07/20 10/07/20 11:14 12:16 16:30 Glucose 222 H POC Glucose 184 H 258 H 10/07/20 10/08/20 10/08/20 20:54 00:02 03:47 Glucose POC Glucose 275 H 352 H* 129 H 10/08/20 10/08/20 06:45 07:30 Glucose 152 H POC Glucose 170 H OUTPATIENT ANTIDIABETIC REGIMEN: * Metformin 2,000mg PO daily * A1c = 10.3% on 09/27/20 ASSESSMENT: * 60yo T2DM male admitted with hyperglycemia/HHS * Pt initiated on IV insulin infusion + IVF 10/06 into 10/07 AM. * Labs normalized 10/07 AM and IV insulin infusion stopped. No basal insulin initiated at the time of the drip discontinuation (no overlap of IV + SQ) therefore rebound hyperglycemia occurred 10/07 PM. * Pt given a weight based dose of basal insulin last evening - still required 18 units of additional correctional insulin overnight to achieve AM fasting BSG of 170 mg/dl. * Will try to keep basal insulin dosing at once daily for easy transition to outpatient. * Repeat Lantus dose this AM and then start Lantus 40 units SQ daily 10/09 AM. * Use CF/CR based on estimated basal of 40 units/day PLAN FOR INPATIENT GLYCEMIC CONTROL: * Hold outpatient oral diabetes medications * Basal insulin * Lantus 30 units SQ x 1 dose this AM then 40 units SQ daily starting 10/09/ * Bolus insulin * NovoLog per scale ACHS or Q6hrs while NPO * Goal Range: Low mg/dL - High mg/dL * Correction Factor: mg/dL/unit * Nutritional / Prandial insulin per carb ratio of 1 unit per 7 grams CHO consumed PLAN FOR DISCHARGE: * A1c = 10.3% on 09/27/20 * Goal A1c < 7% based on age/comorbidities * A1c is greater than or equal to 10% consider triple therapy with metformin + basal insulin + (GLP1-RA OR prandial insulin). May need to continue additional antidiabetic agent based on patient specific factors (efficacy, hypo risk, weight gain/loss, side effects, cost) * Recommend * Continuing Metformin (B12 supplementation may be necessary with jail metformin) * Basal insulin will be needed at ME. Dosing TBD based on inpatient needs but am estimating ~ 30-40 units SQ daily in AM * GLP1RA OR Prandial insulin: * GLP1RA: This will be based off of insurance coverage and patient preference of weekly vs daily injection * Prandial insulin: Novolog/Humalog/Regular etc insulin dosing TBD [may be given with all meals/or just with the largest meal of the day]
--- NOTE | 2020-10-08 16:37 | Billing Data ---
Date of Service October 08, 2020 Coding Level of Care Code 30632 Subseq Hosp Care Lvl 3
--- NOTE | 2020-10-08 16:37 | Billing Data ---
Date of Service October 08, 2020 Coding Level of Care Code 10029 Subseq Hosp Care Lvl 3
[2020-10-08] MEDS: LACTATED RINGER'S 1,000 ML IV SCH (17:14)
--- NOTE | 2020-10-08 22:19 | Emergency Department Note ---
History of Present Illness General Chief complaint: Hyperglycemia Stated complaint: HYPERGLYCEMIA Time Seen by Provider: 10/06/20 23:47 History of Present Illness This is a 60-year-old male presenting to the emergency department for evaluation of elevated blood sugar at home. The patient states that he was diagnosed with diabetes earlier this week at his primary care physician's office, and was started on Metformin. The patient has been feeling worse over the past 24 hours and states that his sugar at home was "HIGH" on his glucometer. The patient is not having distinct chest pain, chest tightness, or shortness of breath. He does feel very thirsty, but has been drinking sweet tea without improvement. He is with significant urination increased from normal. He has not had fevers or chills. He rates his overall discomfort a 7/10. Home Medications Medication Instructions Recorded Confirmed Type lisinopril 20 mg tablet 20 mg PO DAILY #90 tab 07/25/20 10/07/20 Rx simvastatin 80 mg tablet 80 mg PO QPM #90 tab 07/31/20 10/07/20 Rx blood sugar diagnostic #100 ea 09/28/20 10/07/20 Rx blood-glucose meter #1 ea 09/28/20 10/07/20 Rx lancets #100 ea 09/28/20 10/07/20 Rx metformin 500 mg tablet,extended 2,000 mg PO DAILY 30 Days #120 tab 09/28/20 10/07/20 Rx release 24 hr warfarin 5 - 7.5 mg PO .DAILY UD 10/07/20 10/07/20 History Allergies Allergy/AdvReac Type Severity Reaction Status Date / Time No Known Drug Allergies Allergy Unknown Verified 10/07/20 02:02 Past Med/Surg History Medical History Diabetes type 2, controlled Erectile dysfunction Factor 5 Leiden mutation, heterozygous History of DVT (deep vein thrombosis) Hyperlipidemia Hypertension Localized primary osteoarthritis of lower leg S/P ORIF (open reduction internal fixation) fracture Status post ORIF for right forearm fracture-remote Family History Mother Cancer Father Unknown family medical history Denies family history of Prostate cancer Colorectal cancer Social History (Updated 09/26/20 @ 13:20 by Luke Coyle MD) Smoking Status: Never smoker Do You Dip or Chew Tobacco: Yes; Hx Alcohol Use: Yes Alcohol type: beer Alcohol Intake Frequency Comment: About 6 beers on Tuesdays. Hx Substance Use: No Preferred Language: Barbadian Communication Ability: Effective Beliefs That Will Affect Care: None marital status: Current Living Situation: Family Current Living Situation Comment: Son in law lives "downstairs" current occupational status: disabled Other Information That Helps Us Care for You: No Feels Safe at Home: Yes Safety Concerns: Feels Safe At This Time Assistive Devices: None Review of Systems A total of 10 systems reviewed and were otherwise negative Physical Exam Vital Signs Vital Signs Temp Pulse Resp BP Pulse Ox 36.8 C 104 H 22 111/64 98 10/06/20 23:48 10/06/20 23:48 10/06/20 23:48 10/06/20 23:48 10/06/20 23:48 VITALS: Vitals are noted on the nurse's note and reviewed by myself. Vital signs stable. GENERAL: White male who appears older than his stated age. He appears lethargic, but is able to answer questions. HEAD: Normocephalic atraumatic. MOUTH: Mucous membranes dry NECK: Supple without nuchal rigidity. No lymphadenopathy. No thyromegaly. Ce rvical spine is nontender. HEART: Regular rate and rhythm without murmurs gallops or rubs. LUNGS: Clear to auscultation bilaterally without wheezes, rales or rhonchi. No retractions or accessory muscle use. ABDOMEN: Positive normal bowel sounds x 4. Soft, nontender, without masses or organomegaly. No guarding or rebound tenderness. MUSCULOSKELETAL: No muscle atrophy, erythema, or edema noted. Full range of motion in all extremities. NEURO: Patient was alert and oriented to person place and time. CN II through XII grossly intact. Course Administered Medications Atorvastatin Calcium (Atorvastatin 40 Mg Tab) 80 mg PO QAM [facility] Stop: 11/06/20 08:59 Last Admin: 10/08/20 08:15 Dose: 80 mg Documented by: [id number] Admin: 10/07/20 07:24 Dose: 80 mg Documented by: [id number] Lactated Ringer's (Lr) 1,000 mls @ 125 mls/hr IV .Q8H [facility] Stop: 11/07/20 16:44 Last Admin: 10/08/20 17:14 Dose: 125 mls/hr Documented by: [id number] Insulin Aspart (Insulin Aspart 100 Units/Ml 3 Ml Pen) 0 units SC ACHS [facility] Stop: 11/06/20 05:59 Last Admin: 10/08/20 17:24 Dose: 10 units Documented by: [id number] Cosigned by: [id number] Admin: 10/08/20 12:15 Dose: 16 units Documented by: [id number] Cosigned by: [id number] Admin: 10/08/20 08:18 Dose: 10 units Documented by: [id number] Cosigned by: [id number] Admin: 10/07/20 21:49 Dose: 7 units Documented by: [id number] Cosigned by: [id number] Lisinopril (Lisinopril 20 Mg Tab) 20 mg PO DAILY [facility] Stop: 11/06/20 08:59 Last Admin: 10/08/20 08:15 Dose: 20 mg Documented by: [id number] Admin: 10/07/20 07:24 Dose: 20 mg Documented by: [id number] Warfarin Sodium (Warfarin Sod 7.5 Mg Tab) 7.5 mg PO [id number] [facility] Stop: 11/06/20 15:59 Last Admin: 10/08/20 16:10 Dose: 7.5 mg Documented by: [id number] Discontinued Medications Sodium Chloride (Nss 1000ml) 1,000 mls @ 999 mls/hr IV .Q1H1M [facility] Stop: 10/07/20 01:55 Last Infusion: 10/07/20 01:52 Dose: 0 mls/hr Documented by: [id number] Admin: 10/07/20 01:52 Dose: 999 mls/hr Documented by: [id number] Infusion: 10/07/20 01:31 Dose: 0 mls/hr Documented by: [id number] Admin: 10/07/20 00:20 Dose: 999 mls/hr Documented by: [id number] Insulin Human Regular 250 (units/ Sodium Chloride) 250 mls @ 3.6 mls/hr IV .Q24H [facility]; Protocol Stop: 11/06/20 01:14 Last Titration: 10/07/20 23:05 Dose: 0 units/hr, 0 mls/hr Documented by: [id number] Cosigned by: [id number] Titration: 10/07/20 03:56 Dose: 4.3 units/hr, 4.3 mls/hr Documented by: [id number] Cosigned by: [id number] Admin: 10/07/20 01:50 Dose: 3.6 units/hr, 3.6 mls/hr Documented by: [id number] Cosigned by: [id number] Insulin Human Regular 10 units (/ Syringe) 10 mls @ 30 mls/min IV NOW ONE Stop: 10/07/20 04:31 Last Admin: 10/07/20 04:52 Dose: 30 mls/min Documented by: [id number] Cosigned by: [id number] Potassium Chloride/Sodium Chloride (1/2 Nss + 20meq Kcl 1000ml) 20 meq in 1,000 mls @ 125 mls/hr IV .Q8H [facility] Stop: 11/06/20 04:59 Last Infusion: 10/08/20 17:49 Dose: 0 mls/hr Documented by: [id number] Admin: 10/08/20 14:21 Dose: 125 mls/hr Documented by: [id number] Infusion: 10/08/20 14:21 Dose: 125 mls/hr Documented by: [id number] Admin: 10/08/20 06:29 Dose: 125 mls/hr Documented by: [id number] Infusion: 10/08/20 05:48 Dose: 125 mls/hr Documented by: [id number] Admin: 10/07/20 21:48 Dose: 125 mls/hr Documented by: [id number] Infusion: 10/07/20 19:08 Dose: 250 mls/hr Documented by: [id number] Admin: 10/07/20 17:07 Dose: Not Given Documented by: [id number] Admin: 10/07/20 15:08 Dose: 250 mls/hr Documented by: [id number] Infusion: 10/07/20 15:08 Dose: 250 mls/hr Documented by: [id number] Admin: 10/07/20 11:09 Dose: 250 mls/hr Documented by: [id number] Infusion: 10/07/20 11:08 Dose: 250 mls/hr Documented by: [id number] Admin: 10/07/20 06:06 Dose: 250 mls/hr Documented by: [id number] Insulin Human Regular 5 units/ (Syringe) 5 mls @ 30 mls/min IV NOW ONE Stop: 10/08/20 00:16 Last Admin: 10/08/20 00:29 Dose: 30 mls/min Documented by: [id number] Cosigned by: [id number] Insulin Aspart (Insulin Aspart 100 Units/Ml 3 Ml Pen) 0 units SC Q6 [facility] Stop: 11/06/20 05:59 Last Admin: 10/07/20 17:05 Dose: 4 units Documented by: [id number] Cosigned by: [id number] Admin: 10/07/20 11:54 Dose: 2 units Documented by: [id number] Cosigned by: [id number] Admin: 10/07/20 08:02 Dose: Not Given Documented by: [id number] Insulin Aspart (Insulin Aspart 100 Units/Ml 3 Ml Pen) 0 units SC 0000,0400 [facility] Stop: 10/08/20 04:01 Last Admin: 10/08/20 04:19 Dose: Not Given Documented by: [id number] Cosigned by: [id number] Admin: 10/08/20 00:29 Dose: 11 units Documented by: [id number] Cosigned by: [id number] Insulin Glargine (Insulin Glargine Solostar 100 Units/Ml 3 Ml Pen) 30 units SC HS [facility] Stop: 11/06/20 21:59 Last Admin: 10/07/20 22:11 Dose: 30 units Documented by: [id number] Cosigned by: [id number] Insulin Glargine (Insulin Glargine Solostar 100 Units/Ml 3 Ml Pen) 30 units SC NOW ONE Stop: 10/08/20 08:31 Last Admin: 10/08/20 08:45 Dose: 30 units Documented by: [id number] Cosigned by: [id number] Insulin Human Regular (Novolin-R Bolus From Bag) 7 units IV ONE ONE Stop: 10/07/20 01:46 Last Admin: 10/07/20 01:51 Dose: 7 units Documented by: [id number] Cosigned by: [id number] Miscellaneous (Hhs Goal Range 250-350 Mg/Dl) 1 ea N/A ONE ONE Stop: 10/07/20 01:04 Last Admin: 10/07/20 01:52 Dose: Not Given Documented by: [id number] Miscellaneous (Pending 1/2nss+40meq Kcl Ivf) 1 ea N/A Q2H [facility] Stop: 11/06/20 04:19 Last Admin: 10/08/20 14:07 Dose: Not Given Documented by: [id number] Critical Care Time I have personally spent greater than 30 minutes of critical care time in the direct management of this patient. This includes bedside care, interpretation of diagnostic studies, and testing, discussion with consultants, patient, and family members, and other required patient management activities. This 30 mi nutes is in excess of all separately billable procedures. Medical Decision Making Differential Diagnosis Differential includes DKA, HH NK, acute coronary syndrome, myocardial infarction, CVA, TIA, anemia, infection, pneumonia, UTI, pyelonephritis, poor nutrition, dehydration, electrolyte disturbance,hypoglycemia. Laboratory Data Result diagrams: 10/08/20 06:45 10/08/20 06:45 Lab Results 10/06/20 10/07/20 10/07/20 Range/Units 23:49 00:09 00:09 WBC 8.56 (4.8-10.8) K/uL RBC 6.09 (4.7-6.1) M/uL Hgb 16.9 (14.0-18.0) g/dL Hct 53.8 H (42-52) % MCV 88.3 (80-100) fL MCH 27.8 (25-34) pg MCHC 31.4 L (32-36) g/dL Plt Count 192 (130-400) K/uL Immature Gran % (Auto) 0.1 % Neut % (Auto) 77.4 % Lymph % (Auto) 13.6 % Whitman % (Auto) 7.8 % Eos % (Auto) 1.1 % Baso % (Auto) 0.0 % Neut # (Auto) 6.63 H (1.4-6.5) K/uL Lymph # (Auto) 1.16 L (1.2-3.4) K/uL Whitman # (Auto) 0.67 H (0.11-0.59) K/uL Eos # (Auto) 0.09 (0-0.5) K/uL Baso # (Auto) 0.00 (0-0.2) K/uL Immature Gran # (Auto) 0.01 (0.00-0.02) K/uL PT (9.0-12.0) Seconds INR (0.9-1.1) APTT (21.0-31.0) Seconds PTT Ratio VBG pH (7.36-7.41) VBG pCO2 (38-50) mmHg VBG pO2 mmHg VBG HCO3 mmol/L VBG O2 Saturation % VBG Base Excess mEq/L Barometric Pressure mm/Hg Sodium 128 L (136-145) mmol/L Potassium (3.5-5.1) mmol/L Chloride 97 L (98-107) mmol/L Carbon Dioxide 22 (21-32) mmol/L Anion Gap 9.0 (3-11) BUN 76 H (7-18) mg/dl Creatinine 3.47 H (0.6-1.4) mg/dl Est Cr Clr Drug Dosing 25.6 ml/min Est GFR ( Amer) 20.8 Est GFR (Non-Af Amer) 18.0 BUN/Creatinine Ratio 21.9 H (10-20) Glucose 1205 H* (70-99) mg/dl POC Glucose > 600 H* (70-99) mg/dl Calcium 8.8 (8.5-10.1) mg/dl Phosphorus (2.5-4.9) mg/dl Magnesium TNP Total Bilirubin 0.5 (0.2-1) mg/dl AST (15-37) U/L ALT 49 (12-78) U/L Alkaline Phosphatase 98 (45-117) U/L Troponin I < 0.015 (0-0.045) ng/ml Total Protein 6.8 (6.4-8.2) gm/dl Albumin 3.4 (3.4-5.0) gm/dl Globulin 3.4 (2.5-4.0) gm/dl Albumin/Globulin Ratio 1.0 (0.9-2) Lipase 843 H (73-393) U/L Beta-Hydroxybutyric Acd (0.2-2.81) mg/dl TSH 2.720 (0.300-4.500) uIu/ml COVID-19 Eval Order SARS-CoV-2 (PCR) (Negative) Influenza Type A (PCR) (Neg) Influenza Type B (PCR) (Neg) RSV (RT-PCR) (Neg) 10/07/20 10/07/20 10/07/20 Range/Units 00:09 00:09 00:16 WBC (4.8-10.8) K/uL RBC (4.7-6.1) M/uL Hgb (14.0-18.0) g/dL Hct (42-52) % MCV (80-100) fL MCH (25-34) pg MCHC (32-36) g/dL Plt Count (130-400) K/uL Immature Gran % (Auto) % Neut % (Auto) % Lymph % (Auto) % Whitman % (Auto) % Eos % (Auto) % Baso % (Auto) % Neut # (Auto) (1.4-6.5) K/uL Lymph # (Auto) (1.2-3.4) K/uL Whitman # (Auto) (0.11-0.59) K/uL Eos # (Auto) (0-0.5) K/uL Baso # (Auto) (0-0.2) K/uL Immature Gran # (Auto) (0.00-0.02) K/uL PT 31.1 H (9.0-12.0) Seconds INR 3.4 H (0.9-1.1) APTT 32.9 H (21.0-31.0) Seconds PTT Ratio 1.3 VBG pH 7.27 L (7.36-7.41) VBG pCO2 47 (38-50) mmHg VBG pO2 26 mmHg VBG HCO3 21 mmol/L VBG O2 Saturation < 60.0 % VBG Base Excess -6.3 mEq/L Barometric Pressure 727.7 mm/Hg Sodium (136-145) mmol/L Potassium (3.5-5.1) mmol/L Chloride (98-107) mmol/L Carbon Dioxide (21-32) mmol/L Anion Gap (3-11) BUN (7-18) mg/dl Creatinine (0.6-1.4) mg/dl Est Cr Clr Drug Dosing ml/min Est GFR ( Amer) Est GFR (Non-Af Amer) BUN/Creatinine Ratio (10-20) Glucose (70-99) mg/dl POC Glucose (70-99) mg/dl Calcium (8.5-10.1) mg/dl Phosphorus (2.5-4.9) mg/dl Magnesium Total Bilirubin (0.2-1) mg/dl AST (15-37) U/L ALT (12-78) U/L Alkaline Phosphatase (45-117) U/L Troponin I (0-0.045) ng/ml Total Protein (6.4-8.2) gm/dl Albumin (3.4-5.0) gm/dl Globulin (2.5-4.0) gm/dl Albumin/Globulin Ratio (0.9-2) Lipase (73-393) U/L Beta-Hydroxybutyric Acd (0.2-2.81) mg/dl TSH (0.300-4.500) uIu/ml COVID-[address] CovFluRsv at [facility] SARS-CoV-2 (PCR) (Negative) Influenza Type A (PCR) (Neg) Influenza Type B (PCR) (Neg) RSV (RT-PCR) (Neg) 10/07/20 10/07/20 Range/Units 00:16 01:18 WBC (4.8-10.8) K/uL RBC (4.7-6.1) M/uL Hgb (14.0-18.0) g/dL Hct (42-52) % MCV (80-100) fL MCH (25-34) pg MCHC (32-36) g/dL Plt Count (130-400) K/uL Immature Gran % (Auto) % Neut % (Auto) % Lymph % (Auto) % Whitman % (Auto) % Eos % (Auto) % Baso % (Auto) % Neut # (Auto) (1.4-6.5) K/uL Lymph # (Auto) (1.2-3.4) K/uL Whitman # (Auto) (0.11-0.59) K/uL Eos # (Auto) (0-0.5) K/uL Baso # (Auto) (0-0.2) K/uL Immature Gran # (Auto) (0.00-0.02) K/uL PT (9.0-12.0) Seconds INR (0.9-1.1) APTT (21.0-31.0) Seconds PTT Ratio VBG pH (7.36-7.41) VBG pCO2 (38-50) mmHg VBG pO2 mmHg VBG HCO3 mmol/L VBG O2 Saturation % VBG Base Excess mEq/L Barometric Pressure mm/Hg Sodium (136-145) mmol/L Potassium 6.5 H* (3.5-5.1) mmol/L Chloride (98-107) mmol/L Carbon Dioxide (21-32) mmol/L Anion Gap (3-11) BUN (7-18) mg/dl Creatinine (0.6-1.4) mg/dl Est Cr Clr Drug Dosing ml/min Est GFR ( Amer) Est GFR (Non-Af Amer) BUN/Creatinine Ratio (10-20) Glucose (70-99) mg/dl POC Glucose (70-99) mg/dl Calcium (8.5-10.1) mg/dl Phosphorus 6.3 H (2.5-4.9) mg/dl Magnesium 3.2 H Total Bilirubin (0.2-1) mg/dl AST 24 (15-37) U/L ALT (12-78) U/L Alkaline Phosphatase (45-117) U/L Troponin I (0-0.045) ng/ml Total Protein (6.4-8.2) gm/dl Albumin (3.4-5.0) gm/dl Globulin (2.5-4.0) gm/dl Albumin/Globulin Ratio (0.9-2) Lipase (73-393) U/L Beta-Hydroxybutyric Acd 15.59 H (0.2-2.81) mg/dl TSH (0.300-4.500) uIu/ml COVID-19 Eval Order SARS-CoV-2 (PCR) NEGATIVE (Negative) Influenza Type A (PCR) Negative (Neg) Influenza Type B (PCR) Negative (Neg) RSV (RT-PCR) Negative (Neg) ECG Data Attestation: I personally reviewed and interpreted this ECG as follows: Indication: + toxicologic Additional Comments: Normal sinus rhythm @[address] elevation Possible Inferior infarct , age undetermined When compared with ECG of 29-NOV-2002 16:52, Minimal criteria for Anterior infarct are now Present MDM Narrative Physical exam and history were performed. Nursing notes, EMR, and Medication List were personally reviewed. Patient appears to have an elevated blood sugar at home with a very recent d iagnosis of diabetes. The patient does appear dehydrated on exam. Bedside glucose was performed and was "high" in the ER. IV access was established and labs were obtained. The patient was hydrated with multiple liters of fluid. An order was placed for continuous cardiac monitoring. The monitor shows a rate of 84 with normal sinus rhythm. He does not have a significantly elevated white blood cell count or gross anemia. His glucose is markedly elevated at over 1200. He is acidotic on VBG. Troponin x1 is negative. Beta hydroxy is elevated at over 15. Transaminases are not diagnostic. COVID is negative. BUN/CR are slightly elevated. The patient is certainly in DKA possibly HH K. He was started on an insulin drip here in the emergency department. He does not appear well for discharge home. The case was discussed with the on-call hospitalist team who agreed to evaluate him here in the ER. Please see their dictation for further patient course, plan, and disposition. The chart was completed utilizing [employer] Speech Voice Recognition Software. Grammatical errors, random word insertions, pronoun errors, and incomplete sentences are an occasional consequence of this system due to software limitations, ambient noise, and hardware issues. Any formal questions or concerns about the content, text, or information contained within the body of this dictation should be directly addressed to the provider for clarification. . Impression & Plan DKA (diabetic ketoacidoses), Acute hyperglycemia, Acute dehydration Discharge Plan Visit Data Chief Complaint: Hyperglycemia Stated Complaint: HYPERGLYCEMIA ED Provider: Andressa Garay ED Midlevel Provider: Jorge Key Discharge Problem: DKA (diabetic ketoacidoses), Acute hyperglycemia, Acute dehydration Patient Disposition: Admitted As Inpatient Discharge Instructions Interventions: ED Discharge Assessment Last Done: 10/07/20 04:00
--- NOTE | 2020-10-09 01:22 | Billing Data ---
Date of Service October 09, 2020 Coding Level of Care Code 38173 Initial Inpt Care Lvl 3
[2020-10-09] MEDS: LACTATED RINGER'S 1,000 ML IV SCH ×2 (01:32→09:49)
[2020-10-09] MEDS: INSULIN ASPART 100 UNITS/ML 3 ML PEN SC SCH ×4 (04:12→12:55)
--- NOTE | 2020-10-09 07:30 | Discharge Summary ---
Date of Service October 09, 2020 Admission HPI Per Admitting Provider 60-year-old male with history of uncontrolled type 2 diabetes, factor V Leiden mutation, history of DVT, obesity who presents to the emergency department for generalized weakness. Patient is a very poor understanding of his diabetes and discusses how he has 5 large glasses of chocolate milk a day as well as soda pop the past few days "because it is good for you ". He denies ever being told that he had diabetes before because he is always been prediabetic. He does recall going to see Dr. Coyle for his PCP visit as well as endocrinology visit sometime later but does not have a strong recollection of topics discussed either appointment. In the patient room he is visibly quivering and shaking and says that this started when he arrived at the emergency department. He also states that his eyesight has been worsening for the past several months to a year. He states he is unable to read things far in the wall but can see things that are closer. He denies constant feeling of blurry vision. Primary Care Provider: Brayan Coyle MD Admission Exam Per Admitting Provider Constitutional: obese, in no apparent distress, visibly tremoring in all 4 limbs at rest Eyes: EOMI, pupils equal and reactive bilaterally, no scleral icterus Cardiac: RRR, no murmurs, gallops or rubs. Normal S1, S2 Pulm: CTA BL, no wheezes, rhonchi, crackles or rubs, moving air well throughout both lungs Abd: soft, nontender, nondistended, normal bowel sounds, no rebound or guarding Extremities: 2+ peripheral pulses, no edema skin: tight and heavily sun exposed. venous stasis change along bottom of shins Neuro: no focal deficits, moving all 4 limbs, A&Ox3 Principal Diagnosis HHS T2DM Discharge Exam General: A&Ox3. NAD. Cooperative. Obese HEENT: Atraumatic, normocephalic. Poor dentition Pulm: CTAB A&P. -wheezes, -rales, -rhonchi. Symmetrical chest rise. No increase work of breathing. No respiratory distress. Cardiac: RRR, -mrg. Radial pulses intact and symmetrical. Abdominal: soft, non-tender, non-distended, BS x 4 Skin: warm, dry Discharge Data Allergies Allergy/AdvReac Type Severity Reaction Status Date / Time No Known Drug Allergies Allergy Unknown Verified 10/07/20 02:02 Consultations 10/07/20 01:13 ED Decision to Admit Stat Hospital Course (1) Type 2 diabetes mellitus with hyperosmolar hyperglycemic state (HHS): 60 yo M with hx uncontrolled T2DM, obesity, HLD, HTN, Factor V leiden heterozygote w/ hx DVT admitted for weakness secondary to HHS. HHS/DKA, T2DM BSG 1205, BHB elevated at 15, cAG 27, and ABG supportive of HHS with concurrent DKA - A1c at 10.3 in 08/2020 - Stabilized with insulin gtt and IVFs with K, glucose consistently <200 - Transitioned to Lantus 40u SQ QHS + 7-15 units prandial Novolog TID - On discharge continue with: - Metformin 1000mg PO BID - Lantus 40 units SQ QAM - Novolog 5 units prandial TID - extensive counseling regarding dietary modifications while in the hospital - recommend that PCP arrange juvenile justice officer consult after discharge - f/u closely with PCP for further eval/management ANGELA, resolving - Most likely prerenal from extensive osmotic diuresis in setting of HHS - Cr improved to 1.3 (near baseline) with IVFs - recommend serial BMP after discharge Hx DVT/Factor V Leiden Heterozygote - continue warfarin MWF 7.5, other days 5mg - INR goal 2-3 -- at goal HTN - cont lisinopril for htn/kidney protection HLD - cont statin Elevated Lipase - secondary to hyperglycemia above - 843 -> 672 with hydration - no abdominal pain, low suspicion for acute pancreatitis. likely chronic elevation with uncontrolled T2DM (2) Elevated beta-hydroxybutyric acid level: (3) Uncontrolled diabetes mellitus: (4) Factor 5 Leiden mutation, heterozygous: (5) History of DVT (deep vein thrombosis): (6) Hypertension: (7) Hyperlipidemia: Total Time Total Time Spent Total Time Spent (In Minutes): 40 minutes Total Time Includes: Examination of the Patient, Discharge Planning and Medi cation Reconciliation Discharge Plan Discharge Items Patient Disposition: Home - Home Health Services Reason For Visit: [facility] Discharge Diagnosis: HHS Type 2 Diabetes Mellitus Activity: Per Instructions section Non-emergency contact: Primary Care Provider Call non-emergency contact if: you have any medication questions and your symptoms worsen Follow-up/Referrals: Luke Coyle MD [Primary Care Provider] - 04/26/21 10:30 am (YOUR APPOINTMENT WILL BE WITH SUSAN ART PA-C) Diet: Carb Consistent or DM2 Addtl Attending Provider Instructions: You were admitted to [facility] on 10/07/2020 for very high blood sugar levels. You were started on continuous IV insulin and IV fluids, which helped to lower the blood sugar level from 1200 (very high) to below 200. The insulin IV was stopped, and you were started on insulin shots: one shot in the evening as well as three shots throughout the day, before meals. You will be discharged on 10/09/2020 in improved, stable condition. You should take the following insulin shot for diabetes (they will help to keep your blood sugar level below 250-300): 1. Lantus (long-acting insulin): 40 units shot in the morning, every day Please make sure to prick your finger at least twice per day, to measure your blood sugar level. At the least, we recommend that you check your blood sugar level when you wake up, and after at least one of your meals. The sugar before you wake up should not be lower than 90-100. The sugar after you eat should not be above 300. If you experience low, or high, blood sugars, please contact your primary care physician (Dr. Coyle). You should continue to take all of your regular home medications as scheduled. You should also try your best to avoid any beer or sugary drinks such as iced tea, chocolate milk or juice. You should make sure to follow up with Dr. Coyle within 1 week after discharge, so that he can continue to manage your diabetes and set you up with a media analytics manager and juvenile justice officer. Additionally, you are able to use artificial sweeteners such as Sweet 'N Low, Equal or Splenda. Lastly, you should ask your doctor about starting physical therapy, as you had a little bit of difficulty getting around in the hospital without a walker. We hope you continue to feel better. It was a pleasure to help provide your care while you were hospitalized. Pending Studies at Discharge: No Stand-Alone Forms: My [facility], Smoking Cessation Medications and DC Order Prescriptions: New (DME) pen needle, diabetic [Pen Needle] 32 gauge x 5/32" needle See Rx Instructions .ROUTE .MEDSUPPLY Qty: 50 RF: 0 Lantus Solostar U-100 Insulin 100 unit/mL (3 mL) insulin pen 40 unit subcut QAM Qty: 15 RF: 3 Continued lisinopril 20 mg tablet 20 mg PO DAILY Qty: 90 RF: 3 simvastatin 80 mg tablet 80 mg PO QPM Qty: 90 RF: 3 (DME) Accu-Chek Guide test strips Strip See Rx Instructions .ROUTE .MEDSUPPLY Qty: 100 RF: 3 (DME) blood-glucose meter [Accu-Chek Guide Glucose Meter] Misc See Rx Instructions .ROUTE .MEDSUPPLY Qty: 1 RF: 0 (DME) lancets [Accu-Chek Fastclix Lancet Drum] Misc See Rx Instructions .ROUTE .MEDSUPPLY Qty: 100 RF: 3 metformin 500 mg tablet extended release 24 hr 2,000 mg PO DAILY 30 Days Qty: 120 RF: 12 warfarin 5 mg tablet 5 - 7.5 mg PO .DAILY UD RF: 0 Discharge Orders: Discharge Order (Routine); Ordered 10/09/20 Ordered By: Constnatin Gamble/Other Patient Handouts: Diabetes Shopping Preparing Meals, Diabetes: Caring for Your Body, Diabetes Carbs Fats Protein Admission Data Admit Date/Time: 10/07/20 01:55 Attending Provider: Luke Hogan Admit Provider: Linh Cornejo Primary Care Provider: Luke Coyle Other Providers: Mario Pena ; Esmer,Home [facility] Other Interventions: Discharge Summary Assessment (RN) Last Done: 10/09/20 13:24 Supervising Physician Co-Signing Physician Notes Attending attestation Pt seen and examined in concert with Dr. Walter. In agreement with the documented findings as noted in the resident documentation with any exceptions or additions as noted here. Resting comfortably in bed without acute complaint at present. On examination, S1/S2 nl RRR no MCG. CTAB. Abd NT/ND BS+ve Type 2 diabetes, uncontrolled, with HHS - improved and stable on present regimen, good relationship with PCP reported. Will continue present regimen of basal/bolus(prandial) and metformin. STRONGLY encourage logging qAM and qAC blood glucose and presenting with same to PCP. Reviewed extensively the detractions of liquid calories (delmar milk, soda, juice, sweetened iced tea). Would definitely benefit from nutrition/DM counseling, CGM, having support at medical visits to help with information uptake. F/U closely with PCP. Else see resident documentation as noted. Total attending time spent on day of discharge with this patients case: 40 minutes. Resident Activity Tracking Resident Involvement: Resident Care Provided Care Provided: Adult Hospital Medicine
[2020-10-09] MEDS: lisinopril 20 MG TAB PO SCH (08:17)
[2020-10-09 08:30] LABS: INR 1.8 (0.9-1.1)
[2020-10-09 08:34] LABS: BUN Creatinine Ratio 27.8 (10-20); Calcium 8.4 mg/dl (8.5-10.1); Creatinine Clr Calc Pharmacy 76.5 ml/min; Est GFR (African American) 68.3; Est GFR (Non-African American) 58.9; Potassium 4.4 mmol/L (3.5-5.1)
[2020-10-09 08:35] LABS: Phosphorus 2.1 mg/dl (2.5-4.9)
[2020-10-09] MEDS ORDERED: INSULIN GLARGINE SOLOSTAR 100 UNITS/ML 3 ML PEN SC SCH (09:00)
--- NOTE | 2020-10-09 09:41 | Pharmacy Report ---
Pharmacy Glycemic Short Note 2 - Date of Service October 09, 2020 - Glycemic Short BSG Results (Last 24 hours): 10/08/20 10/08/20 10/08/20 11:41 17:13 20:41 Glucose POC Glucose 262 H 204 H 133 H 10/08/20 10/09/20 10/09/20 23:54 04:08 07:57 Glucose 171 H POC Glucose 129 H 159 H 10/09/20 08:16 Glucose POC Glucose 164 H OUTPATIENT ANTIDIABETIC REGIMEN: * Metformin 2,000mg PO daily * A1c = 10.3% on 09/27/20 ASSESSMENT: 10/09: * Mr. Garcia received a total of 66 units of insulin yesterday * 30 units basal + 36 units bolus * BSGs were: [phone] mg/dL, acceptable * Fasting BSG was 164 mg/dL this AM, acceptable * Basal was increased this morning * Lunch BSG was 189 mg/dL, improved * No changes to bolus regimen today 10/08: * 60yo T2DM male admitted with hyperglycemia/HHS * Pt initiated on IV insulin infusion + IVF 10/06 into 10/07 AM. * Labs normalized 10/07 AM and IV insulin infusion stopped. No basal insulin initiated at the time of the drip discontinuation (no overlap of IV + SQ) therefore rebound hyperglycemia occurred 10/07 PM. * Pt given a weight based dose of basal insulin last evening - still required 18 units of additional correctional insulin overnight to achieve AM fasting BSG of 170 mg/dl. * Will try to keep basal insulin dosing at once daily for easy transition to outpatient. * Repeat Lantus dose this AM and then start Lantus 40 units SQ daily 10/09 AM. * Use CF/CR based on estimated basal of 40 units/day PLAN FOR INPATIENT GLYCEMIC CONTROL: * Hold outpatient oral diabetes medications * Basal insulin - increased * Lantus 40 units SC daily * Bolus insulin * NovoLog per scale ACHS or Q6hrs while NPO * Goal Range: Low 110 mg/dL - High 140 mg/dL * Correction Factor: 20 mg/dL/unit * Nutritional / Prandial insulin per carb ratio of 1 unit per 7 grams CHO consumed PLAN FOR DISCHARGE: * A1c = 10.3% on 09/27/20 * Goal A1c < 7% based on age/comorbidities * A1c is greater than or equal to 10% consider triple therapy with metformin + basal insulin + (GLP1-RA OR prandial insulin). May need to continue additional antidiabetic agent based on patient specific factors (efficacy, hypo risk, weight gain/loss, side effects, cost) * Recommend * Continuing Metformin (B12 supplementation may be necessary with roasterman metformin) * Initiate Lantus/Basaglar at 35 units SC once daily in the morning * Initiate Ozempic/Trulicity at lowest dose SC once weekly (every 7 days) with dosing as follows: Trulicity 0.75 mg or Ozempic 0.25 mg * Hold off on prandial insulin at this time
[2020-10-09] MEDS: ATORVASTATIN 40 MG TAB PO SCH (09:49)
[2020-10-09] MEDS ORDERED: WARFARIN SOD 5 MG TAB PO SCH (16:00)
== END 2020-10-09 15:28 | disposition home health service (06) | DRG 638 ==
LOC: ED 23:38 → 2S 10-07 01:55 → SUATTDRO 10-07 01:55 → 2S 10-07 04:00 → 3E 10-08 14:46